=== PATIENT | male | born 1970 | race Caucasian/White ===

== ENCOUNTER 2016-03-19 08:46 | Day surgery (SDC) | payer OTHER ==
[~2016-03-19] VITALS: Ht 170.2 cm; Wt 98.5 kg
[2016-03-19 10:16] VITALS: Ht 170.2 cm; Wt 98.5 kg
[2016-03-19] MEDS ORDERED: RANI150T5 PO (10:26)
[2016-03-19] MEDS ORDERED: METF-480 PO (10:26)
[2016-03-19] MEDS ORDERED: INSU100C SQ (10:26)
[2016-03-19] MEDS ORDERED: LANT3I SC (10:26)
[2016-03-19] MEDS ORDERED: ATOR40TA68 PO (10:26)
[2016-03-19 10:53] VITALS: BP 127/78; PULSE 60; RESP 18
[2016-03-19] MEDS ORDERED: FENTAnyl 50 MCG/ML VIAL ONE (11:01)
[2016-03-19] MEDS ORDERED: MIDAZOLAM 1 MG/ML 2 ML INJ ONE (11:01)
[2016-03-19] MEDS ORDERED: PROPOFOL 20 ML ONE (11:01)
--- NOTE | 2016-03-19 11:43 | GILP ---
DATE OF PROCEDURE: 03/19/2016 PROCEDURE: Esophagogastroduodenoscopy. PREOPERATIVE DIAGNOSIS: Patient presenting with history of chronic abdominal pain unresponsive to r outine symptomatic therapy, rule out peptic ulcer disease, esophagitis, etc. POSTOPERATIVE DIAGNOSES: 1. Patchy gastritis with erosions in the antrum. 2. Mild reflux esophagitis, Andrews classification A. Biopsies were done. DESCRIPTION OF PROCEDURE: After the informed written consent was obtained, the patient was asked to lie on the left lateral side. Intravenous anesthesia was given by anesthesiologist, Dr. Smalls. W hen the patient became somnolent, the Olympus video upper endoscope was introduced into the orophary nx, then into the esophagus. Esophagus showed evidence of erosions just above the GE junction exten ding for about 1.5 cm in length. Multiple biopsies were obtained to rule out Rea's esophagus. Scope at this time was advanced into the stomach. Stomach showed evidence of multiple erosions in t he antrum. Several areas of patchy erythema noted indicating a diffuse gastritis. Scope at this ti me was advanced into the duodenum. Entire duodenum appeared normal with no mucosal abnormality. Sc ope at this time was withdrawn. Biopsy was done from the antrum, lesser curvature and the fundus to rule out H. pylori infection. Endoscope at this time was withdrawn and the procedure was terminate d. PLAN: Recommend omeprazole 40 mg a day for 2 months. Meanwhile, wait for the pathology report for H pylori infection. Dictated By: RICHARD EDWARDS/NTS Conf#: [id number] DID#: [id number] CC: ; RICHARD BLUM MD;*EndCC*
[2016-03-19 11:45] VITALS: BP 127/85; PULSE 74; RESP 18
== END 2016-03-19 11:54 | disposition home or self-care (01) ==
LOC: GIL 08:46
PROVIDERS: ATTEND Internal Medicine Gastroenterology
DX: K21.0 Gastro-esophageal reflux disease with esophagitis (principal); K29.60 Other gastritis without bleeding; I10 Essential (primary) hypertension; E11.9 Type 2 diabetes mellitus without complications
CPT/HCPCS: 43239; 88305; 88312; 88313; J2250; J3010; Z7610